=== PATIENT | male | born 1950 | race Caucasian/White ===

== ENCOUNTER 2017-08-30 03:52 | Emergency (ER) | payer OTHER ==
[~2017-08-30] VITALS: Ht 162.6 cm; Wt 58.5 kg
[2017-08-30 04:36] VITALS: Ht 162.6 cm; Wt 58.5 kg
[2017-08-30 07:15] VITALS: BP 117/68
== END 2017-08-30 07:15 | disposition home or self-care (01) ==
LOC: ED 03:52
DX: M54.5 Low back pain (principal)
CPT/HCPCS: J1885